=== PATIENT | female | born 1960 | race Caucasian/White ===

== ENCOUNTER 2016-06-04 22:05 | Emergency (ER) | payer OTHER ==
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
--- NOTE | 2016-06-05 00:24 | ED ORDER SUMMARY ---
..... Patient: PJ ACHARYA OrderSheet [facility] VisitID: [id number] [address] [place] [address] 56y, F Registration Date/Time: 06/04/2016 ORDER SHEET Weight: 62.1 kg (stated) Allergies: No Known Drug Allergy GENERAL ORDERS: MEDICATION ORDERS: Toradol IM 60 mg (NOW) (23:32 06/04/2016 Victor Manuel Gould) (Ack 23:34 EInderbitzen R.N.) (23:57 EInderbitzen R.N.) Flexeril PO 10 mg (NOW) (23:32 06/04/2016 Victor Manuel Gould) (Ack 23:34 EInderbitzen R.N.) (23:48 EInderbitzen R.N.) IV FLUIDS: ORDER SHEET NOTES: [Electronically signed by Steph Love R.N. (00:37 06/05/2016)] [Electronically signed by Tyrone Sheehan Dr. (04:57 06/05/2016)] [Electronically locked/signed by Steph Love R.N. (00:37 06/05/2016)]
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
--- NOTE | 2016-06-05 00:24 | ED ORDER SUMMARY ---
..... Patient: PJ ACHARYA OrderSheet [facility] VisitID: [id number] [address] [place] [address] 56y, F Registration Date/Time: 06/04/2016 ORDER SHEET Weight: 62.1 kg (stated) Allergies: No Known Drug Allergy GENERAL ORDERS: MEDICATION ORDERS: Toradol IM 60 mg (NOW) (23:32 06/04/2016 Victor Manuel Gould) (Ack 23:34 EInderbitzen R.N.) (23:57 EInderbitzen R.N.) Flexeril PO 10 mg (NOW) (23:32 06/04/2016 Victor Manuel Gould) (Ack 23:34 EInderbitzen R.N.) (23:48 EInderbitzen R.N.) IV FLUIDS: ORDER SHEET NOTES: [Electronically signed by Steph Love R.N. (00:37 06/05/2016)] [Electronically signed by Tyrone Sheehan Dr. (04:57 06/05/2016)] [Electronically locked/signed by Steph Love R.N. (00:37 06/05/2016)]
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
--- NOTE | 2016-06-05 04:59 | ED MAR SUMMARY ---
..... Medication Administration Record [facility] [address] [place] [address] Patient: PJ ACHARYA Visit ID: [id number] 56y, F Weight: 62.1 kg Height/Length: 58 in BMI: 28.6 ALLERGIES: No Known Drug Allergy Given 23:48 06/04/2016 Steph Love RShannonNShannon Medication Administered: FLEXERIL [PO] (CYCLOBENZAPRINE HCL), Dose: 10 mg Tablets PO. Medication Ordered: Flexeril PO 10 mg (NOW). Given 23:55 06/04/2016 Steph Love, RShannonNShannon Medication Administered: TORADOL [IM] (KETOROLAC TROMETHAMINE), Dose: 60 mg IM. Medication Ordered: Toradol IM 60 mg (NOW).
--- NOTE | 2016-06-05 04:59 | ED MED RECONCILIATION SUMMARY ---
Patient: PJ ACHARYA Medication Reconciliation Report [facility] VisitID: [id number] [place] [address] 56y, F Registration Date/Time: 06/04/2016 Weight: 62.1 kg Height/Length: 58 in. BMI: 28.6 ALLERGIES: No Known Drug Allergy The patient's Home Medications are listed below: CONTINUE TAKING THE FOLLOWING MEDICATIONS: Ibuprofen Oral 200 mg, PRN, last dose: 1999 The source(s) of the original Home Medication information: Not obtained. The following Medications were given to the patient in the Emergency Department: Flexeril [PO] PO 10 mg, administered: 06/04/2016 11:48:00 PM Toradol [IM] IM 60 mg, administered: 06/04/2016 11:55:00 PM The following Medications were prescribed to the patient: Motrin 600 mg tablets: take 1 tablet orally as needed for pain, stiffness or swelling. Dispense thirty (30). No refill. Substitution is permissible.(take with food) -- Tyrone Sheehan Dr. Flexeril 10 mg: take 1 orally every 8 hours as needed for muscle spasm or pain. Dispense thirty (30). No refills. Substitution is permissible. -- Tyrone Sheehan Dr.
--- NOTE | 2016-06-05 04:59 | ED MAR SUMMARY ---
..... Medication Administration Record [facility] [address] [place] [address] Patient: PJ ACHARYA Visit ID: [id number] 56y, F Weight: 62.1 kg Height/Length: 58 in BMI: 28.6 ALLERGIES: No Known Drug Allergy Given 23:48 06/04/2016 Steph Love RShannonNShannon Medication Administered: FLEXERIL [PO] (CYCLOBENZAPRINE HCL), Dose: 10 mg Tablets PO. Medication Ordered: Flexeril PO 10 mg (NOW). Given 23:55 06/04/2016 Steph Love, RShannonNShannon Medication Administered: TORADOL [IM] (KETOROLAC TROMETHAMINE), Dose: 60 mg IM. Medication Ordered: Toradol IM 60 mg (NOW).
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
--- NOTE | 2016-06-05 04:59 | ED MED RECONCILIATION SUMMARY ---
Patient: PJ ACHARYA Medication Reconciliation Report [facility] VisitID: [id number] [place] [address] 56y, F Registration Date/Time: 06/04/2016 Weight: 62.1 kg Height/Length: 58 in. BMI: 28.6 ALLERGIES: No Known Drug Allergy The patient's Home Medications are listed below: CONTINUE TAKING THE FOLLOWING MEDICATIONS: Ibuprofen Oral 200 mg, PRN, last dose: 1999 The source(s) of the original Home Medication information: Not obtained. The following Medications were given to the patient in the Emergency Department: Flexeril [PO] PO 10 mg, administered: 06/04/2016 11:48:00 PM Toradol [IM] IM 60 mg, administered: 06/04/2016 11:55:00 PM The following Medications were prescribed to the patient: Motrin 600 mg tablets: take 1 tablet orally as needed for pain, stiffness or swelling. Dispense thirty (30). No refill. Substitution is permissible.(take with food) -- Tyrone Sheehan Dr. Flexeril 10 mg: take 1 orally every 8 hours as needed for muscle spasm or pain. Dispense thirty (30). No refills. Substitution is permissible. -- Tyrone Sheehan Dr.
== END 2016-06-05 00:36 | disposition home or self-care (01) ==
LOC: ED SRH 22:05
DX: S13.4XXA Sprain of ligaments of cervical spine, initial encounter (principal); M54.12 Radiculopathy, cervical region; V49.40XA Driver injured in collision with unspecified motor vehicles in traffic accident, initial encounter; Y93.89 Activity, other specified; Y92.410 Unspecified street and highway as the place of occurrence of the external cause; Y99.9 Unspecified external cause status